=== PATIENT | female | born 1980 | race African-American/Black ===

== ENCOUNTER 2016-08-23 02:35 | Emergency (ER) | payer MEDICAID ==
[~2016-08-23] VITALS: Ht 154.9 cm; Wt 81.6 kg
[2016-08-23 03:03] VITALS: BP 141/78
--- NOTE | 2016-08-23 03:42 | NUR ---
TO ER BED 5
--- NOTE | 2016-08-23 03:45 | NUR ---
PT IS 36/F BIB SELF TO ED WITH C/O ABDOMINAL PAIN WITH N/V SINCE 0000 TONIGHT. PT STATES NO MEDICAL HX. DENIES D; SKIN IS PINK/WARM/DRY; AAOX4 WITH EVEN AND STEADY GAIT; LUNGS CLEAR BL; HR EVEN AND REGULAR; PT DENIES ANY FEVER, CP, SOB, OR COUGH AT THIS TIME; PATIENT STATES PAIN OF 10/10 AT THIS TIME; VSS; PATIENT POSITIONED FOR COMFORT; HOB ELEVATED; BEDRAILS UP X2; BED DOWN. ER MD MADE AWARE OF PT STATUS.
[2016-08-23] MEDS ORDERED: NACL 0.9% 1,000 ML IV ONE (03:58)
[2016-08-23] MEDS ORDERED: MORPHINE SULFATE 4 MG/ML SYR IVP ONE (04:00)
[2016-08-23] MEDS ORDERED: KETOROLAC 30 MG/ML VIAL IVP ONE (04:00)
[2016-08-23] MEDS ORDERED: ONDANSETRON 4 MG/2 ML VIAL IVP ONE (04:00)
--- NOTE | 2016-08-23 04:05 | NUR ---
Patient being evaluated by physician DR TENA at bedside.
[2016-08-23] MEDS ORDERED: HYDROmorphone 1 MG/ML AMP IVP ONE (06:20)
--- NOTE | 2016-08-23 06:50 | NUR ---
IV removed, catheter intact and site benign. Applied folded 4x4 gauze and tape to stop bleeding.
--- NOTE | 2016-08-23 06:57 | NUR ---
Patient discharged with v/s stable. Written and verbal after care instructions given and explained. Patient alert, oriented and verbalized understanding of instructions. Ambulatory with steady gait. All questions addressed prior to discharge. ID band removed. Patient advised to follow up with PMD. Rx of NAPROSYN 500MG AND NORCO 5/325MG given. Patient educated on indication of medication including possible reaction and side effects. Opportunity to ask questions provided and answered.
[2016-08-23 06:58] VITALS: BP 136/70
== END 2016-08-23 06:58 | disposition home or self-care (01) ==
LOC: MED 02:35
DX: N83.202 Unspecified ovarian cyst, left side (principal)
CPT/HCPCS: 36415; 76830; 76856; 80053; 81001; 81025; 83690; 85025; 87086; 96361; 96374; 96375; 99285; J1170; J1885; J2270; J2405; J7030

== ENCOUNTER 2016-12-28 05:27 | Inpatient (IN) | payer MEDICAID ==
[~2016-12-28] VITALS: Ht 154.9 cm; Wt 82.6 kg
[2016-12-28 05:36] VITALS: BP 121/98
--- NOTE | 2016-12-28 05:40 | NUR ---
PATIENT AMBULATED TO ER BED 5.
--- NOTE | 2016-12-28 05:56 | NUR ---
Patient being evaluated by Dr. Cardenas at bedside.
--- NOTE | 2016-12-28 05:58 | NUR ---
36/F c/o "something is stuck in my throat and it's burning" for the past 6 months. Pt has been seen several times for this at [facility] and pt states "They don't do anything for me." Pt AOX4, clear speech, no drooling noted. VSS.
[2016-12-28] MEDS ORDERED: GLUCAGON 1 MG VIAL IVP ONE (06:10)
[2016-12-28] MEDS ORDERED: LORazepam 2 MG/ML VIAL IVP ONE (06:40)
[2016-12-28] MEDS ORDERED: MORPHINE SULFATE 2 MG/ML SYR IVP ONE (07:00)
--- NOTE | 2016-12-28 07:11 | NUR ---
Pt report given to Geremias LING. Transfer of care at this time.
--- NOTE | 2016-12-28 07:12 | NUR ---
received report from ANURADHA BOND. Addendum: 12/28/16 at 0718 by [facility] PT C/O SORE THROAT 12/29. Patient appears to be resting comfortably in bed. Vital Signs within normal limits. Respirations even and unlabored.WILL CONTINUE TO MONITOR.
--- NOTE | 2016-12-28 08:04 | NUR ---
PT STS " I NEED SOMETHING FOR ANXIETY & PAIN. NOTIFIED DR BARAHONA. NO NEW TREATMENT.
--- NOTE | 2016-12-28 08:10 | NUR ---
GAVE REPORT TO ANURADHA WEBSTER
--- NOTE | 2016-12-28 08:17 | NUR ---
Patient will be admitted to care of DR TORRES. Admited to MS. Will go to [id number]. Belongings list completed. Report to ANURADHA WEBSTER.
[2016-12-28 08:50] VITALS: BP 127/79
[2016-12-28] MEDS ORDERED: MORPHINE SULFATE 4 MG/ML SYR IVP PRN (08:55)
--- NOTE | 2016-12-28 08:59 | NUR ---
MRSA SPECIMEN COLLECTED, SENT TO THE LAB.
--- NOTE | 2016-12-28 09:00 | NUR ---
PATIENT ARRIVED TO UNIT VIA WHEELCHAIR AT 0835. PATIENT ADMISSION ASSESSMENT FOR ADULT SYSTEM, AND ADMISSION ASSESSMENT FOR ADULT HISTORY DONE AT 0900, CHARTED LATE ON INTERVENTION. ADMITTED PATIENT FROM ED, NO SIGNS AND SYMPTOMS OF DISTRESS NOTED AT THIS TIME. PATIENT IS ALERT, AWAKE AND ORIENTED X4. INTRODUCED SELF TO PATIENT, ORIENTED PATIENT TO ROOM. CALL LIGHT WITHIN REACH, BED IN LOW POSITION, SIDE RAILS UP X2.
[2016-12-28] MEDS: LORazepam 2 MG/ML VIAL IVP PRN ×2 (09:54→15:30)
[2016-12-28] MEDS: MORPHINE SULFATE 2 MG/ML SYR IVP PRN ×3 (09:54→20:21)
[2016-12-28] MEDS: DEXT 5% /NACL 0.9% 1,000 ML IV SCH ×2 (10:32→18:55)
--- NOTE | 2016-12-28 12:20 | NUR ---
PATIENT ASLEEP AT THIS TIME, NO SIGNS AND SYMPTOMS OF DISTRESS NOTED AT THIS TIME. IV FLUID RUNNING, IV SITE CLEAN, DRY AND INTACT.
[2016-12-28 15:00] VITALS: BP 119/81
--- NOTE | 2016-12-28 16:40 | NUR ---
FAMILY MEMBERS AT BEDSIDE.
--- NOTE | 2016-12-28 17:30 | NUR ---
PATIENT STATED THAT SHE VOMITED IN THE TOILET. WILL CONTINUE TO MONITOR.
--- NOTE | 2016-12-28 17:50 | NUR ---
PAGED DR YOUNG FOR REMINDER OF CONSULT. DR. Jai RANDOLPH IS HERE COVERING FOR DR YOUNG, WILL SPEAK WITH PATIENT.
--- NOTE | 2016-12-28 18:00 | NUR ---
DR. Jai RANDOLPH PLACED PATIENT TO BE NPO PAST MIDNIGHT, HAD PATIENT SIGN CONSENT FOR EGD TO BE DONE IN AM. SIGN POSTED ON DOOR AND WILL ENFORCE TO [place] ATTORNEY.
--- NOTE | 2016-12-28 19:00 | NUR ---
ENDORSED TO CYBER INCIDENT HANDLER RN. PATIENT IS STABLE, NO SIGNS AND SYMPTOMS OF ACUTE DISTRESS NOTED AT THIS TIME.
--- NOTE | 2016-12-28 19:02 | NUR ---
PATIENT IS RESTING IN BED COMPLAINING OF FEELING NAUSEATED,IVF INFUSING WELL IV SITE PATENT AT THIS TIME.PATIENT DENIES PAIN PATIENT IS ABLE TO AMBULATE WELL TO THE BATHROOM AND BACK TO BED.FAMILY AT BEDSIDE WITH THE PATIENT.CALL LIGHT WITHIN REACH WILL CONTINUE TO MONITOR.
--- NOTE | 2016-12-28 19:03 | NUR ---
I OFFERED PATIENT ANTIEMETIC PATIENT SAID SHE IS FINE FOR NOW SAID SHE WILL CLOSE HER EYES AND REST.
--- NOTE | 2016-12-28 19:30 | NUR ---
Patient's Plan of Care was discussed and reviewed with CALL CENTER REPRESENTATIVE: JANN
--- NOTE | 2016-12-28 20:15 | NUR ---
PATIENT VOMITING IS BLUE EMESIS BAG REQUESTED FOR MORE BAGS SO I GAVE THE PATIENT MORE BLUE EMESIS BAGS AND PATIENT ALSO SAID SHE IS HAVING PAIN AND WANTS PAIN MEDICATION WELL HER ANTIEMETIC.ANURADHA ALEMAN INFORMED AND SHE WILL MEDICATE THE PATIENT FOR PAIN AND FOR NAUSEA.
[2016-12-28 20:16] VITALS: BP 135/97
[2016-12-28] MEDS: ONDANSETRON 4 MG/2 ML VIAL IVP PRN (20:21)
--- NOTE | 2016-12-28 20:21 | NUR ---
PATIENT WAS MEDICATED BY ANURADHA ALEMAN INDICATED FOR NAUSEA AND VOMITING AND FOR PAIN.
--- NOTE | 2016-12-28 22:23 | NUR ---
PATIENT IS RESTING COMFORTABLY IN BED NO N/V AT THIS TIME NO COMPLAINS OF PAIN.IVF INFUSING WELL.NEEDS MET BLANKET GIVEN TO THE PATIENT PER PATIENT REQUEST.WILL CONTINUE TO MONITOR.CALL LIGHT WITHIN REACH.
--- NOTE | 2016-12-28 23:55 | NUR ---
PATIENT IS AWARE OF EGD AND SIGNED THE CONSENT.
[2016-12-29 00:41] VITALS: BP 119/74
[2016-12-29] MEDS: MORPHINE SULFATE 2 MG/ML SYR IVP PRN ×3 (00:45→20:10)
[2016-12-29] MEDS: DEXT 5% /NACL 0.9% 1,000 ML IV SCH ×2 (01:33→14:55)
--- NOTE | 2016-12-29 01:41 | NUR ---
PATIENT DOING WELL RESTING IN BED IVF INFUSING WELL IV SITE PATENT WILL CONTINUE TO MONITOR. CALL LIGHT WITHIN REACH.
--- NOTE | 2016-12-29 02:49 | NUR ---
PATIENT STABLE NO DISTRESS WILL CONTINUE TO MONITOR.
--- NOTE | 2016-12-29 04:32 | NUR ---
PATIENT SLEEPING COMFORTABLY IN BED IN NO DISTRESS WILL CONTINUE TO MONITOR.NO PAIN OR DISCOMFORT NOTED.
--- NOTE | 2016-12-29 05:51 | NUR ---
PATIENT STABLE RESTING IN BED IN NO DISTRESS WILL CONTINUE TO MONITOR.IVF INFUSING WELL IV SITE PATENT NO PAON OR DISCOMFORT NOTED OR N/V NOTED.
[2016-12-29 06:27] LABS: BASOPHILS # (AUTO) 0.1 K/uL (0.00-0.22); BASOPHILS % (AUTO) 1.5 % (0.0-2.0); EOSINOPHILS # (AUTO) 0.2 K/uL (0-0.4); EOSINOPHILS % (AUTO) 2.7 % (0.0-4.0); HEMATOCRIT 33.2 % (36-48); HEMOGLOBIN 10.6 g/dL (12.0-16.0); LYMPHOCYTES # (AUTO) 1.7 K/uL (2.5-16.5); LYMPHOCYTES % (AUTO) 28.7 % (20.5-51.1); MEAN CORPUSCULAR HEMOGLOBIN 26 pg (27-31); MEAN CORPUSCULAR HGB CONC 32 g/dL (33-37); MEAN CORPUSCULAR VOLUME 82 fL (80-94); MONOCYTES # (AUTO) 0.5 K/uL (0.8-1.0); MONOCYTES % (AUTO) 8.4 % (1.7-9.3); NEUTROPHILS # (AUTO) 3.5 K/uL (1.8-7.7); NEUTROPHILS % (AUTO) 58.7 % (42.2-75.2); PLATELET COUNT (AUTO) 208 K/uL (140-450); RED BLOOD CELL COUNT(AUTO) 4.03 MIL/uL (4.20-5.40); RED CELL DISTRIBUTION WIDTH 19.7 % (11.6-13.7)
[2016-12-29] MEDS: ONDANSETRON 4 MG/2 ML VIAL IVP PRN (06:40)
[2016-12-29 06:46] LABS: CARBON DIOXIDE 24.5 mmol/L (21-32); CREATININE 0.8 mg/dL (0.6-1.3); POTASSIUM 3.5 mmol/L (3.5-5.1)
--- NOTE | 2016-12-29 07:30 | NUR ---
RECEIVED REPORT FROM ROLLER MACHINE OPERATOR RN. PATIENT IS RESTING, HAS NO SIGNS AND SYMPTOMS OF DISTRESS AT THIS TIME.
--- NOTE | 2016-12-29 07:32 | NUR ---
PATIENT IS CURRENTLY RESTING IN BED REPORT ENDORSED TO ANURADHA BLUM WILL CONTINUE TO MONITOR.
--- NOTE | 2016-12-29 11:25 | NUR ---
OR NURSE CAME TO GET PATIENT FOR EGD PROCEDURE. PATIENT STABLE AT THIS TIME.
[2016-12-29] MEDS ORDERED: MIDAZOLAM 2 MG/2 ML VIAL ONE (11:42)
[2016-12-29] MEDS ORDERED: fentaNYL 0.05 MG/ML VIAL ONE (11:42)
[2016-12-29] MEDS ORDERED: diphenhydrAMINE 50 MG/ML VIAL ONE (11:42)
--- NOTE | 2016-12-29 12:55 | NUR ---
PATIENT BACK FROM EGD. GIANNA FROM OR GAVE ME REPORT. STATED THAT FINDINGS WERE DUODENAL ULCER AND BIOPSIES WERE SENT TO LAB. PATIENT IS STABLE AT THIS TIME. DROWSY FROM THE MEDICATIONS GIVEN DURING THE PROCEDURE. WILL CONTINUE TO MONITOR. NO SIGNS AND SYMPTOMS OF DISTRESS NOTED AT THIS TIME.
--- NOTE | 2016-12-29 13:30 | NUR ---
PATIENT SLEEPING AT THIS TIME. WILL CONTINUE TO MONITOR.
--- NOTE | 2016-12-29 14:50 | NUR ---
PATIENT IS SLEEPING, NO SIGNS AND SYMPTOMS OF DISTRESS NOTED AT THIS TIME.
--- NOTE | 2016-12-29 16:00 | NUR ---
PATIENT STATED DISCOMFORT IN THROAT FROM SCOPE. OFFERED ICE CHIPS AND JELLO. PATIENT TOLERATED WELL.
--- NOTE | 2016-12-29 16:30 | NUR ---
PAGED DR Janet TORRES TO BE ABLE TO GET ORDER FOR PAIN MED. WILL CALL BACK IF NO RESPONSE IN 15 MIN.
--- NOTE | 2016-12-29 16:43 | NUR ---
CALLED DR RANDOLPH TO GET AN ORDER FOR PAIN MEDICATION.
[2016-12-29] MEDS ORDERED: LIDOCAINE VISCOUS 2% 20 ML UDC PO PRN (16:45)
[2016-12-29] MEDS ORDERED: traMADol 50 MG TAB PO PRN (16:45)
--- NOTE | 2016-12-29 16:45 | NUR ---
PAGED DR. Janet TORRES. PATIENT HAS NO PAIN MEDS AT THIS TIME. WILL CALL BACK IF NO CALL BACK IN 15 MINS.
--- NOTE | 2016-12-29 19:17 | NUR ---
ENDORSED PATIENT TO STONE SETTER RN FOR CONTINUITY OF CARE. PATIENT IN STABLE CONDITION.
--- NOTE | 2016-12-29 19:20 | NUR ---
Patient's Plan of Care was discussed and reviewed with PLUG MACHINE OPERATOR: KEAGAN MULTANI
[2016-12-29] MEDS ORDERED: MORPHINE SULFATE 2 MG/ML SYR IVP PRN (19:30)
--- NOTE | 2016-12-29 19:30 | NUR ---
CALLED DR RANDOLPH FOR NEW PAIN MED ORDER
--- NOTE | 2016-12-29 19:42 | NUR ---
PATIENT IS CURRENTLY COMPLAINING OF SEVERE PAIN AND DISCOMFORT TO THROAT AND SO MD TORRES A EXCHANGE HAS BEEN CALLED.PATIENT STATES,"IM SO IRRITABLE I DON'T WANT TRAMADOL IT DOES NOTHING FOR ME I NEED OTHER PAIN MEDICATION."WILL AWAIT FOR HIS CALL BACK.
--- NOTE | 2016-12-29 19:50 | NUR ---
Dianna PITTS CALLED BACK AND HE WAS INFORMED THAT PATIENT IS HAVING SEVERE PAIN AND PATIENT STATES,"TRAMADOL IS NOT EFFECTIVE MAKES HER SICK AND REFUSES TO TAKE THE MEDICATION." GAVE NEW ORDERS.WILL CARRY ORDERS OUT.
--- NOTE | 2016-12-29 19:55 | NUR ---
PATIENT COMPLAINS THAT HER IV LINE IS LEAKING SO I FLUSHED HER IV WITH NORMAL SALINE AND I CHECKED HER IV LINE AND IT IS LEAKING SO I DISCONTINUED THE CURRENT IV LINE AND RESTARTED A NEW IV LINE TO RT WRIST G#22 AT FIRST ATTEMPT WITH GOOD BLOOD RETURN PATIENT TOLERATED PROCEDURE WELL. ANURADHA HARRIS IS AWARE OF NEW ORDER FOR PAIN MEDICATION SHE WILL MEDICATE THE PATIENT.
--- NOTE | 2016-12-29 19:57 | NUR ---
I INFORMED THE PATIENT THAT MD ORDERED A THROAT CULTURE PATIENT REFUSED AT THIS TIME PATIENT STATES," I DON'T WANT YOU POKING MY THROAT RIGHT NOW." I EXPLAINED TO THE PATIENT WHY ITS NECESSARY PATIENT STATES,"I WILL THINK ABOUT IT I WILL LET YOU KNOW."
[2016-12-29 20:00] VITALS: BP 120/94
[2016-12-29] MEDS ORDERED: AMITRIPTYLINE 10 MG TAB PO SCH (21:00)
[2016-12-29] MEDS: LORazepam 2 MG/ML VIAL IVP PRN (21:09)
--- NOTE | 2016-12-29 21:09 | NUR ---
PATIENT IS CURRENTLY COMPLAINING OF FEELING VERY ANXIOUS AND WANTS MEDICATION TO HELP HER CONTROL HER ANXIETY.ANURADHA HARRIS MEDICATED THE PATIENT WITH ATIVAN ORDERED WILL CONTINUE TO MONITOR.
--- NOTE | 2016-12-29 21:30 | NUR ---
PATIENT REQUEST FOR CRACKERS AND CRANBERRY JUICE IT WAS GIVEN TO THE PATIENT. PATIENT ATE SOME OF THE SALTINE CRACKERS AND WAS ABLE TO EAT CRACKERS AND DRINK CRANBERRY JUICE WITHOUT COMPLAINS OF DIFFICULTY SWALLOWING.THEN PATIENT REQUESTING FOR A CHICKEN OR TUNA SANDWICH WOOD BOATBUILDER APPRENTICE RYANN INFORMED.
--- NOTE | 2016-12-29 22:00 | NUR ---
PATIENT WAS GIVEN A TUNA SANDWICH PER PATIENTS REQUEST.WILL CONTINUE TO MONITOR.
--- NOTE | 2016-12-29 22:30 | NUR ---
PATIENT ATE ONE HALF OF THE SANDWICH AND EAT IT WELL NO COMPLAINS OF DIFFICULTY SWALLOWING OF PAIN AND DRINK CRANBERRY JUICE SWALLOWED WELL.WILL CONTINUE TO MONITOR.
[2016-12-30 00:07] VITALS: BP 105/63
--- NOTE | 2016-12-30 00:14 | NUR ---
PATIENT IS CURRENTLY RESTING WELL IN BED IN NO DISTRESS DENIES PAIN AND DISCOMFORT.IVF INFUSING WELL IV SITE PATENT.
[2016-12-30] MEDS: DEXT 5% /NACL 0.9% 1,000 ML IV SCH ×2 (00:55→04:51)
--- NOTE | 2016-12-30 01:44 | NUR ---
PATIENT SLEEPING COMFORTABLY IN BED NO DISTRESS NO PAIN OR DISCOMFORT.IVF INFUSING WELL IV SITE PATENT.CALL LIGHT WITHIN REACH SCD'S ON TO BOTH LOWER EXTREMITIES.
--- NOTE | 2016-12-30 03:16 | NUR ---
PATIENT CALLED PATIENT STATES,"I WOKE UP WITH THROBBING THROAT PAIN." I OFFERED IF SHE WANTS TO TAKE NORCO TABLET FOR PAIN PATIENT SAID,"NO,I DON'T WANT THE PILL DOESN'T WORK FOR ME AND IT HURTS TO SWALLOW PILLS."PATIENT REFUSED THE NORCO PATIENT WANTS MORPHINE FOR PAIN.ANURADHA HARRIS AWARE SHE WILL MEDICATE THE PATIENT FOR PAIN.
[2016-12-30] MEDS: MORPHINE SULFATE 2 MG/ML SYR IVP PRN ×2 (03:20→10:14)
--- NOTE | 2016-12-30 04:12 | NUR ---
PATIENT IS ASKING FOR YECENIA CRACKERS BUT THERE IS NONE AVAILABLE AT THIS TIME SO I GAVE PATIENT SALTINE CRACKERS PATIENT IS EATING CRACKERS WELL AT THIS TIME SWALLOWING FOOD WELL, AND IS DRINKING AND SWALLOWING CRANBERRY JUICE WELL. PATIENT IS SWALLOWING WELL AND EATING WELL.PATIENT IS AWARE THAT THROAT CULTURE NEEDS TO BE COLLECTED WILL COLLECT AFTER PATIENT IS DONE EATING HER SNACKS.
--- NOTE | 2016-12-30 04:40 | NUR ---
PATIENT AGREED TO COLLECT THROAT CULTURE I WAS ABLE TO SWAB HER AND SPECIMEN HAS BEEN COLLECTED AND WILL BE SEND TO THE LAB.
[2016-12-30 05:52] LABS: BASOPHILS # (AUTO) 0.2 K/uL (0.00-0.22); BASOPHILS % (AUTO) 4.2 % (0.0-2.0); EOSINOPHILS # (AUTO) 0.3 K/uL (0-0.4); EOSINOPHILS % (AUTO) 5.4 % (0.0-4.0); HEMATOCRIT 32.8 % (36-48); HEMOGLOBIN 10.1 g/dL (12.0-16.0); LYMPHOCYTES # (AUTO) 1.8 K/uL (2.5-16.5); LYMPHOCYTES % (AUTO) 29.5 % (20.5-51.1); MEAN CORPUSCULAR HEMOGLOBIN 26 pg (27-31); MEAN CORPUSCULAR HGB CONC 31 g/dL (33-37); MEAN CORPUSCULAR VOLUME 83 fL (80-94); MONOCYTES # (AUTO) 0.5 K/uL (0.8-1.0); MONOCYTES % (AUTO) 8.3 % (1.7-9.3); NEUTROPHILS # (AUTO) 3.1 K/uL (1.8-7.7); NEUTROPHILS % (AUTO) 52.6 % (42.2-75.2); PLATELET COUNT (AUTO) 193 K/uL (140-450); RED BLOOD CELL COUNT(AUTO) 3.95 MIL/uL (4.20-5.40); RED CELL DISTRIBUTION WIDTH 19.9 % (11.6-13.7); WHITE BLOOD COUNT (AUTO) 5.9 K/uL (4.8-10.8)
--- NOTE | 2016-12-30 06:16 | NUR ---
PATIENT STABLE REFUSED HER PROTONIX PATIENT STATES," I DON'T TAKE PILLS."ATTEMPTED TO GIVE HER HER MEDS AND WAS EDUCATED ON THE IMPORTANCE OF TAKING HER MEDS AND PURPOSE FOR THE MEDS BUT PATIENT STILL REFUSED.
[2016-12-30 06:22] LABS: CARBON DIOXIDE 26.6 mmol/L (21-32); CREATININE 0.9 mg/dL (0.6-1.3); POTASSIUM 3.6 mmol/L (3.5-5.1)
[2016-12-30] MEDS ORDERED: PANTOPRAZOLE 40 MG TABEC PO SCH (06:30)
--- NOTE | 2016-12-30 07:20 | NUR ---
PATIENT STABLE REPORT ENDORSED TO ANURADHA CAREY AT BEDSIDE.
--- NOTE | 2016-12-30 07:21 | NUR ---
PATIENT REPORT RECEIVED AT BEDSIDE FROM EVENING NURSE. PATIENT IS AWAKE, ALERT, AND ORIENTED. NO SIGNS AND SYMPTOMS OF DISTRESS NOTED. IV SITE NOTED ON RIGHT WRIST. IVF INFUSING WELL. BED IN LOWEST POSITION, SIDE RAILS UP AND CALL LIGHT WITHIN REACH. WILL CONTINUE TO MONITOR.
[2016-12-30 08:00] VITALS: BP 117/76
[2016-12-30] MEDS: HYDROcodone/APAP 10/325 MG 1 TAB TAB PO PRN ×2 (08:19→12:36)
--- NOTE | 2016-12-30 09:15 | NUR ---
PATIENT HAS BEEN SCREENED AND CATEGORIZED HIGH NUTRITION RISK. PATIENT WILL BE SEEN WITHIN 1-2 DAYS OF ADMISSION. 12/28/16-12/29/[address]
--- NOTE | 2016-12-30 10:50 | NUR ---
PAGED DR. TORRES ABOUT PATIENT'S REQUEST TO SEE HIM. STATED THAT HE WILL BE HERE LATER THIS AFTERNOON. PATIENT IS AWARE.
[2016-12-30] MEDS: LORazepam 2 MG/ML VIAL IVP PRN (10:51)
--- NOTE | 2016-12-30 13:40 | NUR ---
12/30/16 RD INITIAL ASSESSMENT COMPLETED PLEASE REFER TO NUTRITION ASSESSMENT UNDER CARE ACTIVITY FOR ESTIMATED NUTRITIONAL NEEDS. 1. CONTINUE REGULAR DIET 2. ENCOURAGE INCREASED PO INTAKE TO TOLERANCE 3. RD TO FOLLOW-UP HIGH RISK, 2-[address]
[2016-12-30 14:00] VITALS: BP 122/73
[2016-12-30 14:40] VITALS: BP 115/70
--- NOTE | 2016-12-30 14:40 | NUR ---
PATIENT SEEN BY DR. Janet TORRES
[2016-12-30] MEDS ORDERED: ELA10 PO ×2 (14:46→15:41)
[2016-12-30] MEDS ORDERED: ACET-2869 PO (15:35)
[2016-12-30] MEDS ORDERED: OMEP20TC24 PO (15:36)
--- NOTE | 2016-12-30 15:38 | NUR ---
AMEYA NOTE SPOKE WITH AND GAVE VERBAL CLINICAL UPDATE ABOUT THE PATIENT TO PRINCESS QUE LING OF [facility]# [phone] EXT [phone] FAX# [phone] AND SHE SAID PATIENT'S HOSPITAL STAY, REF# [id number], APPROVED FROM 12/28/16 THROUGH 01/01/17 AT TELEMETRY LOC. RECEIVED FAX OF THE APPROVAL.
[2016-12-30] MEDS ORDERED: AMOX500C25 PO (15:39)
[2016-12-30] MEDS ORDERED: CLAR500T3 PO (15:40)
[2016-12-30 16:00] VITALS: BP 129/93
--- NOTE | 2016-12-30 16:20 | NUR ---
PT STATES SHE WAS TOLD BY DR TORRES THAT SHE WILL GET PRESCRIPTION FOR ATIVAN FOR ANXIETY IN ADDITION TO THE MOOD STABILIZER ELAVIL, DR TORRES CALLED ON THE PHONE TO CLARIFY, PER DR TORRES, PT ONLY TO GET ELAVIL PRESCRIPTION NOT FOR ATIVAN, PT MADE AWARE OF DR TORRES'S RESPONSE.
--- NOTE | 2016-12-30 16:35 | NUR ---
PATIENT DISCHARGED HOME. DISCHARGE INSTRUCTIONS AND PRESCRIPTIONS GIVEN AND SIGNED. PATIENT VERBALIZED UNDERSTANDING. IV SITE DISCONTINUED, CATHETER INTACT. PATIENT LEFT WITH ALL HER BELONGINGS. FAMILY PRESENT. NO SIGNS AND SYMPTOMS OF DISTRESS NOTED. PATIENT IN STABLE CONDITION.
--- NOTE | 2016-12-31 15:11 | NUR ---
CM NOTE RECEIVED REQUEST FROM CUONG GREY RN PH [phone] EXT [phone] FOR CLINICAL UPDATE UPON DISCHARGE. FAXED FINAL REVIEW/CLINICAL UPDATE UPON DISCHARGE TO CUONG GREY RN [phone] PH [phone] EXT [phone].
--- NOTE | 2016-12-31 15:32 | NUR ---
0987 RECEIVED CALL FROM GILBERTO AT [facility] [phone] FAX [phone] REQUESTING CLINICAL INFORMATION ON PT. INFORMED HER THAT REVIEWS HAVE BEEN SENT TO [facility]. GILBERTO STATED THAT THEY ARE RESPONSIBLE FOR MEDICAL COST. DC SUM, H&P, OP REPORT AND GI CONSULT FAXED REQUESTED.
== END 2016-12-30 17:00 | disposition home or self-care (01) | DRG 243 ==
LOC: MED 05:27 → MTU 08:39
PROVIDERS: ADMIT Preventive Medicine Preventive Medicine/Occupational Environmental Medicine; ATTEND Preventive Medicine Preventive Medicine/Occupational Environmental Medicine
PROC: 0DB58ZX Excision of Esophagus, Via Natural or Artificial Opening Endoscopic, Diagnostic (ICD-10-PCS; 2016-12-29)
PROC: 0D758ZZ Dilation of Esophagus, Via Natural or Artificial Opening Endoscopic (ICD-10-PCS; 2016-12-29)
PROC: 0DB98ZX Excision of Duodenum, Via Natural or Artificial Opening Endoscopic, Diagnostic (ICD-10-PCS; principal; 2016-12-29 11:30)
PROC: 0DB68ZX Excision of Stomach, Via Natural or Artificial Opening Endoscopic, Diagnostic (ICD-10-PCS; 2016-12-29 11:30)
DX: K22.4 Dyskinesia of esophagus (principal); K26.9 Duodenal ulcer, unspecified as acute or chronic, without hemorrhage or perforation; K22.2 Esophageal obstruction; K29.70 Gastritis, unspecified, without bleeding; E83.51 Hypocalcemia; F41.1 Generalized anxiety disorder; D64.9 Anemia, unspecified; B96.81 Helicobacter pylori [H. pylori] as the cause of diseases classified elsewhere; F32.9 Major depressive disorder, single episode, unspecified; D50.9 Iron deficiency anemia, unspecified; E66.9 Obesity, unspecified; Z76.5 Malingerer [conscious simulation]; Z68.34 Body mass index [BMI] 34.0-34.9, adult
CPT/HCPCS: 36415; 80048; 84443; 84703; 85025; 86677; 87081; 88305; 96374; 96375; 99285; C1727; J1200; J1610; J2060; J2250; J2270; J2405; J3010; J7030; J7042

== ENCOUNTER 2017-01-29 13:24 | Emergency (ER) | payer MEDICAID ==
[~2017-01-29] VITALS: Ht 154.9 cm; Wt 81.6 kg
[~2017-01-29 13:24] MED LIST: ACET-2869 PO; AMOX500C25 PO; CLAR500T3 PO; ELA10 PO; OMEP20TC12 PO
[2017-01-29 13:35] VITALS: BP 132/77
--- NOTE | 2017-01-29 15:22 | NUR ---
PT PRESENTS TO ER W/C/O SORE THROAT AND LEFT EAR PAIN SINCE THIS AM. PT STATES FEELS LIKE HER THROAT IS BURNING;ALSO C/O HEADACHE;DENIES N/V/D; SKIN IS PINK/WARM/DRY; AAOX4 WITH EVEN AND STEADY GAIT; LUNGS CLEAR BL; HR EVEN AND REGULAR; PT DENIES ANY FEVER, CP, SOB, OR COUGH AT THIS TIME; PATIENT STATES PAIN OF 10/10 AT THIS TIME; PATIENT POSITIONED FOR COMFORT; HOB ELEVATED; BEDRAILS UP X2; BED DOWN. ER MD MADE AWARE OF PT STATUS.
--- NOTE | 2017-01-29 15:38 | NUR ---
Dr Soriano at bedside.
[2017-01-29] MEDS ORDERED: PENICILLIN G BENZATHINE L-A 0.6 MU/ML SYR IM ONE (15:45)
[2017-01-29] MEDS ORDERED: KETOROLAC 60 MG/2 ML VIAL IM ONE (15:45)
--- NOTE | 2017-01-29 16:10 | NUR ---
PT STILL C/O HEADACHE;POSITIONED TO COMFORTABLE POSITION;ERMD NOTIFIED;
[2017-01-29] MEDS ORDERED: MORPHINE SULFATE 4 MG/ML SYR IM ONE (16:15)
--- NOTE | 2017-01-29 16:40 | NUR ---
PT CALLED HER FAMILY MEMBER TO PICK HER UP IN THE LOBBY.
[2017-01-29 16:45] VITALS: BP 134/95
--- NOTE | 2017-01-29 16:45 | NUR ---
Patient discharged with v/s stable. Written and verbal after care instructions given and explained. Patient alert, oriented and verbalized understanding of instructions. Ambulatory with steady gait. All questions addressed prior to discharge. ID band removed. Patient advised to follow up with PMD. Rx of NORCO AND PREDNISONE given. Patient educated on indication of medication including possible reaction and side effects. Opportunity to ask questions provided and answered.
== END 2017-01-29 16:45 | disposition home or self-care (01) ==
LOC: MED 13:24
DX: J02.9 Acute pharyngitis, unspecified (principal); Z79.899 Other long term (current) drug therapy
CPT/HCPCS: 96372; 99284; J0561; J1885; J2270